=== PATIENT | female | born 1955 | race Two or more races ===

== ENCOUNTER → 2017-01-17 | Outpatient (CLI) | payer OTHER ==
--- NOTE | 2017-01-17 19:29 | RADRPT ---
PROCEDURE: XR KNEES. CLINICAL INDICATION: Knee pain TECHNIQUE: AP, lateral, and sunrise views of both knees were obtained, weightbearing. The images r eviewed on a PACS workstation. COMPARISON: None. FINDINGS: There is bilateral, symmetric, severe, tricompartmental osteoarthritis with joint space narrowing, a rticular sclerosis, and osteophyte formation. There is bone on bone contact in the left lateral comp artment. There is a mild, bilateral, lateral subluxation of both patellas. Small bilateral knee effusions are also noted. No acute fracture, dislocation or osseous lesion. IMPRESSION: Bilateral, symmetric, tricompartmental osteoarthrosis with small bilateral pleural effusions, and mi ld bilateral lateral subluxation of both patellas. Bone on bone contact in the left lateral compartm ent. RPTAT: EE .Aria Haas MD, Date Time Electronically viewed and signed by .Aria Haas MD, on 01/17/2017 14:28 .F/
--- NOTE | 2017-01-18 05:51 | HKNOTE ---
DATE OF SERVICE: 01/17/2017 CHIEF COMPLAINT: Bilateral knee pain. HISTORY OF PRESENT ILLNESS: This is a 61-year-old female who is complaining of severe left knee pain. She had a previous injury to her right knee in 1995 after a fall. She is using a cane for ambulation. She has had previous treatment including physical therapy, injections, and pain medications. She takes ibuprofen and tramadol without any pain relief. She is complaining of severe 10/10 pain in the left knee. The pain is on the outside of the knee. It interferes with her activities of daily living. She has difficulty ambulating. She has difficulty navigating stairs. The pain is constant. There are no alleviating factors. It is aggravated by standing and walking. She denies any locking or catching. She has no other complaints. PAST MEDICAL HISTORY: Hypothyroidism. MEDICATIONS: Please see chart. PAST SURGICAL HISTORY: She denies any previous surgeries. SOCIAL HISTORY: Denies tobacco, alcohol, or drug use. FAMILY HISTORY: Noncontributory. ALLERGIES: NO KNOWN DRUG ALLERGIES. REVIEW OF SYSTEMS: Negative, except per HPI. General: No acute distress. Alert and oriented x3. Gait: Antalgic gait. Left hip is 0-90 degrees flexion, 50 degrees external rotation, and 20 degrees internal rotation. Negative Stinchfield test. Negative Mehnaz's test. Negative straight leg raise. Left knee exam: Valgus alignment. Tender over the lateral joint line. Nontender over the medial joint line. Passively correctable to neutral alignment, 10-100 degrees range of motion. Stable to varus, valgus stress. Negative anterior drawer. Negative posterior drawer. IMAGING: Left knee: There is end-stage osteoarthritis of the left knee with lateral compartment kgqb-sl-[id number] arthritic changes. X-rays right knee: There is joint space narrowing of the lateral compartment with marginal osteophytes and subchondral sclerosis. IMPRESSION: This is a 61-year-old female with bilateral knee primary osteoarthritis. PLAN: The patient has failed nonoperative management. We will request authorization for left total knee arthroplasty. She will return in 6 weeks for re-evaluation. Dictated By: Shauna Dangelo MD /genoveva/lorena /Document#: [id number]
== END | disposition home or self-care (01) ==
LOC: HKI 13:58
PROVIDERS: ATTEND Orthopaedic Surgery Adult Reconstructive Orthopaedic Surgery
DX: M25.561 Pain in right knee (principal); M25.562 Pain in left knee; M17.0 Bilateral primary osteoarthritis of knee
CPT/HCPCS: G0463

== ENCOUNTER → 2017-03-07 | Outpatient (CLI) | payer OTHER ==
[~2017-03-07] MED LIST: CALC1TAB79 PO; ERGO500037 PO; GABA300C16 PO; METF500T4 PO; PROP10TA6 PO
--- NOTE | 2017-03-08 04:07 | HKNOTE ---
DATE OF SERVICE: 03/07/2017 CHIEF COMPLAINT: Left knee pain. HISTORY OF PRESENT ILLNESS: This is a 62-year-old female with left knee osteoarthritis who is here for her preoperative evaluation. She is scheduled for a left total knee arthroplasty on 03/13/2017. She is complaining of pain with difficulty performing her activities of daily living. She uses a cane for ambulation. She has no other complaints. GAIT: Antalgic gait reciprocal gait pattern. LEFT KNEE EXAMINATION: Neutral alignment. Tender over the medial and lateral joint lines, 0 to 120 degrees range of motion. Stable to varus valgus stress, negative Osmani, negative anterior drawer , negative posterior drawer, negative Anabell's. Motor strength 5/5 hamstrings, tibialis anterior, gastroc soleus. IMAGING: X-rays, left knee: 3-view of the left knee demonstrates degenerative changes with joint s pace narrowing and yizu-[id number] arthritic changes of the lateral compartment with subchondral sclero sis. There is also subchondral sclerosis of the medial compartment with the preserved joint space. There are degenerative changes of the patellofemoral joint. IMPRESSION: A 62-year-old female with left valgus knee osteoarthritis. PLAN: The patient is scheduled for a left total knee arthroplasty on 03/13/2017. I discussed the r isks and benefits associated with surgery, which include but are not limited to infection, deep veno us thrombosis, pulmonary embolism, damage to neurovascular structures including nerves, arteries and veins requiring repair or impairing function, heart attack, stroke, need for blood transfusion, fra ctures, leg length discrepancy, loosening of prosthesis, wear of prosthesis, need for revision surge ry, risks associated with anesthesia and even . Patient understood all the risks and informed consent was signed. All her questions were answered. She is scheduled for a left total knee arthro plasty on 03/13/2017 at [facility]. Dictated By: LIBAN TALAMANTES/LIANG Conf#: [id number] DID#: [id number]
--- NOTE | 2017-03-08 04:07 | HKNOTE ---
DATE OF SERVICE: 03/07/2017 CHIEF COMPLAINT: Left knee pain. HISTORY OF PRESENT ILLNESS: This is a 62-year-old female with left knee osteoarthritis who is here for her preoperative evaluation. She is scheduled for a left total knee arthroplasty on 03/13/2017. She is complaining of pain with difficulty performing her activities of daily living. She uses a cane for ambulation. She has no other complaints. GAIT: Antalgic gait reciprocal gait pattern. LEFT KNEE EXAMINATION: Neutral alignment. Tender over the medial and lateral joint lines, 0 to 120 degrees range of motion. Stable to varus valgus stress, negative Osmani, negative anterior drawer , negative posterior drawer, negative Anabell's. Motor strength 5/5 hamstrings, tibialis anterior, gastroc soleus. IMAGING: X-rays, left knee: 3-view of the left knee demonstrates degenerative changes with joint s pace narrowing and mroz-qj-dqhu arthritic changes of the lateral compartment with subchondral sclero sis. There is also subchondral sclerosis of the medial compartment with the preserved joint space. There are degenerative changes of the patellofemoral joint. IMPRESSION: A 62-year-old female with left valgus knee osteoarthritis. PLAN: The patient is scheduled for a left total knee arthroplasty on 03/13/2017. I discussed the r isks and benefits associated with surgery, which include but are not limited to infection, deep veno us thrombosis, pulmonary embolism, damage to neurovascular structures including nerves, arteries and veins requiring repair or impairing function, heart attack, stroke, need for blood transfusion, fra ctures, leg length discrepancy, loosening of prosthesis, wear of prosthesis, need for revision surge ry, risks associated with anesthesia and even . Patient understood all the risks and informed consent was signed. All her questions were answered. She is scheduled for a left total knee arthro plasty on 03/13/2017 at [facility]. Dictated By: LIBAN TALAMANTES/LIANG Conf#: [id number] DID#: [id number]
== END | disposition home or self-care (01) ==
LOC: HKI 14:29
PROVIDERS: ATTEND Orthopaedic Surgery Adult Reconstructive Orthopaedic Surgery
DX: Z01.818 Encounter for other preprocedural examination (principal); M17.12 Unilateral primary osteoarthritis, left knee; M21.062 Valgus deformity, not elsewhere classified, left knee
CPT/HCPCS: G0463

== ENCOUNTER 2017-03-13 07:30 | Inpatient (IN) | payer OTHER ==
[2017-03-12 12:24] VITALS: BMI 42.5
[~2017-03-13] VITALS: Ht 170.2 cm; Wt 124.3 kg
[2017-03-13] VITALS (21 sets, daily range): BP systolic 97–123; BP diastolic 49–73; PULSE 62–84; RESP 12–29; Ht 170.2 cm; Wt 124.3 kg
[~2017-03-13 07:30] MED LIST changes: +ATROPINE 1 MG/10 ML SYRINGE IV PRN; -CALC1TAB79 PO; +DIPHENHYDRAMINE 50 MG INJ IV PRN; +EPHEDrine SULFATE 50 MG/5 ML SYG IV PRN; +EPHEDrine SULFATE 50 MG/5 ML SYG ONE; -ERGO500037 PO; +FENTAnyl 50 MCG/ML VIAL IV PRN; -GABA300C16 PO; +HYDROmorphONE (0.2 MG/ML) 10ML SYG IV PRN; +LABETALOL HCL 20MG INJ IV PRN; +MEPERIDINE 25 MG INJ IV PRN; -METF500T4 PO; +MIDAZOLAM 1 MG/ML 2 ML INJ IV PRN; +ONDANSETRON 4 MG INJ IV PRN; +OXYCODONE/ACETAMINOPHEN (5/325) TAB PO PRN; -PROP10TA6 PO; +ROPIVACAINE 0.2% 60 ML, morphine SULFATE (PF) 4 MG, CLONIDINE 100 MCG, KETOROLAC 30 MG,... INJ SCH; +SUCCINYLCHOLINE CHLORIDE 100 MG/5 ML SYG IV ONE; +hydrALAzine 20 MG INJ IV PRN; +morphine (1 MG/ML) 10ML SYRINGE IV PRN
--- NOTE | 2017-03-13 08:11 | HPN ---
Date/Time of Note Date/Time of Note DATE: 03/13/17 TIME: 08:10 Interval H&P Admission Note Pt. seen H&P reviewed: No system changes IRINA GBIBS PA-C Mar 13, 2017 08:10
[2017-03-13] MEDS ORDERED: ERGO500037 PO (08:51)
[2017-03-13] MEDS ORDERED: CALC1TAB79 PO (08:52)
[2017-03-13] MEDS ORDERED: PROP10TA6 PO (08:52)
[2017-03-13] MEDS ORDERED: GABA300C16 PO (08:53)
[2017-03-13] MEDS ORDERED: METF500T4 PO (08:53)
[2017-03-13] MEDS ORDERED: oxyCODONE (CR) 10 MG TAB [oxyCONTIN] PO ONE (09:43)
[2017-03-13] MEDS ORDERED: ACETAMINOPHEN 1000MG/100ML IV 100 ML IVPB ONE (09:43)
[2017-03-13] MEDS ORDERED: LANSOPRAZOLE 30 MG CAP PO ONE (09:44)
[2017-03-13] MEDS ORDERED: ONDANSETRON 4 MG INJ IV ONE (09:44)
[2017-03-13] MEDS ORDERED: CELECOXIB 200 MG CAP PO ONE (09:44)
[2017-03-13] MEDS ORDERED: DEXAMETHASONE 4 MG/ML 1 ML INJ IV ONE (09:45)
[2017-03-13] MEDS ORDERED: TRANEXAMIC ACID 2,000 MG in SOD CHLORIDE 0.9% 100 ML IVPB SCH (10:00)
[2017-03-13] MEDS ORDERED: CEFAZOLIN 2 GM/50 ML (PMX) 50 ML IVPB SCH (10:00)
[2017-03-13] MEDS ORDERED: TRANEXAMIC ACID 1,000 MG in SOD CHLORIDE 0.9% 100 ML IV ONE ×4 (10:30)
[2017-03-13] MEDS ORDERED: VANCOMYCIN 1 GM in NS 250 ML IVPB SCH (10:30)
[2017-03-13] MEDS ORDERED: MIDAZOLAM 1 MG/ML 2 ML INJ ONE (12:20)
[2017-03-13] MEDS ORDERED: ONDANSETRON 4 MG INJ ONE (12:20)
[2017-03-13] MEDS ORDERED: GLYCOPYRROLATE 0.4 MG INJ ONE (12:20)
[2017-03-13] MEDS ORDERED: PROPOFOL 20 ML ONE (12:20)
[2017-03-13] MEDS ORDERED: DEXAMETHASONE 4 MG/ML 1 ML INJ ONE (12:20)
[2017-03-13] MEDS ORDERED: FENTAnyl 50 MCG/ML VIAL ONE (12:20)
[2017-03-13] MEDS ORDERED: ROCURONIUM 50 MG INJ ONE (12:20)
[2017-03-13] MEDS ORDERED: NEOSTIGMINE 3 MG/3 ML SYRINGE ONE (12:20)
[2017-03-13] MEDS ORDERED: LIDOCAINE 2% (SDV) 5 ML INJ ONE (12:20)
[2017-03-13] MEDS ORDERED: ROPIVACAINE 0.5 % 30 ML VIAL ONE (12:21)
[2017-03-13] MEDS ORDERED: POLYMYXIN/BACITRACIN 1L IRRIG ONE (12:34)
[2017-03-13] MEDS ORDERED: OCULAR LUBRICANT 3.5 GM OPH OINT ONE (12:52)
[2017-03-13] MEDS ORDERED: TRANEXAMIC ACID 1,000 MG in SOD CHLORIDE 0.9% 100 ML IV SCH (13:00)
--- NOTE | 2017-03-13 15:02 | SIPON ---
Date/Time of Note Date/Time of Note DATE: 03/13/17 TIME: 15:00 Operative Report Preoperative Diagnosis Left knee osteoarthritis Postoperative Diagnosis same Operation/Procedure Performed Left total knee arthroplasty Surgeon MD Kalli housekeeping assistant Craig Vizcarra MD Second assist: IRINA GIBBS PA-C Anesthesia: general Estimated blood loss: 250 - 300 ml's Transfusion Required none Specimen resected bone Grafts/Implants Duffy nephMerchant Exchange fanny II Size 5N femur, Size 3 tibia, 10mm PS poly, 35mm patella , 65s280 mm stem Complications none LIBAN PECK MD Mar 13, 2017 15:02
--- NOTE | 2017-03-13 15:52 | PDOCDIS ---
Discharge Instructions DIAGNOSIS Discharge Diagnosis Status post left total knee arthroplasty CONDITION Patient Condition: Stable HOME CARE INSTRUCTIONS: Diet Instructions: Regular ACTIVITY: Activity Restrictions: Slowly Increase Activity Rest between Activity Avoid heavy lifting No Sexual Activity Do not Drive Do not operate Machinery Do not operate Power Tool Avoid Heavy Housework Keep Limb Elevated (Keep leg in full extension while resting. Do not bend the knee while sleeping. Placed 2-3 pillows under her foot/ankle so that leg remains in full extension.) Weight Bearing (As tolerated with front wheeled walker.) Bathing Restrictions: Shower (Keep surgical area clean and dry until postoperative appointment.) FOLLOW UP/APPOINTMENTS Follow-up Plan Follow-up at postoperative appointment around 10-14 days after surgery that was provided for you at your preoperative visit. IRINA GIBBS PA-C Mar 13, 2017 15:52
[2017-03-13] MEDS ORDERED: ZOLPIDEM 5 MG TAB PO PRN (16:00)
[2017-03-13] MEDS ORDERED: HYDROmorphONE 0.2 MG/ML PCA IV PRN (16:00)
[2017-03-13] MEDS ORDERED: KETOROLAC 15 MG INJ IV PRN (16:00)
[2017-03-13] MEDS ORDERED: DOCUSATE SODIUM 100 MG CAP PO ONE ×2 (16:00→16:31)
[2017-03-13] MEDS ORDERED: COUMADIN NOTE XX SCH (16:00)
[2017-03-13] MEDS ORDERED: BISACODYL 10 MG SUPP PR PRN (16:00)
[2017-03-13] MEDS ORDERED: NALOXONE (0.4 MG/ML) INJ IV PRN (16:00)
[2017-03-13] MEDS ORDERED: NA PHOSPHATE/BIPHOS 133 ML ENEMA PR PRN (16:00)
[2017-03-13] MEDS ORDERED: MEPERIDINE 10 MG/ML 30 ML PCA IV PRN (16:00)
[2017-03-13] MEDS ORDERED: BETHANECHOL 25 MG TAB PO PRN (16:00)
[2017-03-13] MEDS ORDERED: MAGNESIUM HYDROXIDE 30ML CUP PO PRN (16:00)
[2017-03-13] MEDS ORDERED: ASPIRIN (EC) 325 MG TAB PO ONE ×2 (16:00→16:31)
[2017-03-13] MEDS ORDERED: SENNA/DOCUSATE NA (8.6MG/50MG) TAB PO PRN (16:00)
[2017-03-13] MEDS: ACETAMINOPHEN 1000MG/100ML IV 100 ML IVPB SCH ×2 (16:39→23:56)
[2017-03-13] MEDS: ONDANSETRON 4 MG INJ IV SCH ×2 (16:40→21:58)
--- NOTE | 2017-03-13 16:54 | RADRPT ---
PROCEDURE: XR Left Knee. CLINICAL INDICATION: Left knee pain. Postop. TECHNIQUE: Two views. Frontal and lateral. COMPARISON: 01/17/2017. FINDINGS: There is no fracture or dislocation. There is gas in the soft tissues related to the recent surgery. There is a total left knee arthroplasty which appears satisfactory. There is no lytic or blastic lesion. IMPRESSION: 1. Satisfactory postoperative appearance of the left knee. RPTAT: QQ .Ricki Mccarty MD, MD Date Time Electronically viewed and signed by .Ricki Mccarty MD, MD on 03/13/2017 16:54 .R/
[2017-03-13] MEDS: VANCOMYCIN 1 GM (PMX) 250 ML IVPB SCH (18:34)
[2017-03-13] MEDS: DEXTROSE 5%-LR 1,000 ML IV SCH (18:39)
[2017-03-13] MEDS: oxyCODONE 5 MG TAB PO PRN (19:47)
[2017-03-13] MEDS: GABAPENTIN 100 MG CAP PO SCH (21:57)
[2017-03-14 00:05] VITALS: BP 125/59; PULSE 80; RESP 18
[2017-03-14 02:28] VITALS: BP 119/63; RESP 19
[2017-03-14] MEDS: oxyCODONE 5 MG TAB PO PRN ×3 (02:31→16:05)
[2017-03-14 04:00] VITALS: BP 122/63; PULSE 78; RESP 17
[2017-03-14] MEDS: ONDANSETRON 4 MG INJ IV SCH ×2 (04:00→10:25)
[2017-03-14] MEDS: DEXTROSE 5%-LR 1,000 ML IV SCH ×2 (04:09→16:44)
[2017-03-14 05:10] LABS: BASOPHILS % 0.1 % (0.0-2.0); HEMATOCRIT 33.1 % (37.0-47.0); HEMOGLOBIN 10.7 g/dl (12.0-16.0); LYMPHOCYTES # 0.9 10^3/ul (0.8-2.9); LYMPHOCYTES % 7.1 % (15.0-51.0); MEAN CORPUSCULAR HGB CONC 32.3 g/dl (32.0-37.0); MEAN CORPUSCULAR VOLUME 92.7 fl (82.0-101.0); MEAN PLATELET VOLUME 9.8 fl (7.4-10.4); MONOCYTE # 0.9 10^3/ul (0.3-0.9); MONOCYTES % 7.2 % (0.0-11.0); NEUTROPHIL # 10.7 10^3/ul (1.6-7.5); NEUTROPHILS % 85.2 % (39.0-77.0); PLATELET COUNT 235 10^3/UL (140-415); RED BLOOD COUNT 3.57 10^6/ul (4.20-5.40); RED CELL DISTRIBUTION WIDTH 12.9 % (11.5-14.5); WHITE BLOOD COUNT 12.6 10^3/ul (4.8-10.8)
[2017-03-14] MEDS: DEXAMETHASONE 4 MG/ML 1 ML INJ IV SCH (06:32)
[2017-03-14] MEDS: VANCOMYCIN 1 GM (PMX) 250 ML IVPB SCH (06:32)
--- NOTE | 2017-03-14 06:55 | OPR ---
DATE OF OPERATION: 03/13/2017 PREOPERATIVE DIAGNOSIS: Left knee osteoarthritis. POSTOPERATIVE DIAGNOSIS: Left knee osteoarthritis. PROCEDURES PERFORMED: 1. Left total knee arthroplasty, CPT code 62763. 2. Computer assisted surgical navigational procedure for total knee, CPT code 07892. SURGEON: Liban Dangelo M.D. HOUSEHOLD APPLIANCES SALESPERSON: SUSAN Martinez. ANESTHESIOLOGIST: Dr. Cassidy. ANESTHESIA: General. ESTIMATED BLOOD LOSS: 300 mL. COMPLICATIONS: None. SPECIMENS: Resected bone. TOURNIQUET TIME: 90 minutes at 250 mmHg. DISPOSITION: To PACU in stable condition. IMPLANT USED: A [employer]uffy [employer]hew Iqra size 3 tibial baseplate, Legion size 5 narrow femoral comp onent, 35 mm patellar component, 10 mm high flexion posterior stabilized polyethylene 10 x 100 mm lo ng stem. INDICATION FOR PROCEDURE: This is a 62-year-old female with endstage osteoarthritis of the left kne e, who failed nonoperative management. Risks, benefits, alternatives of surgical intervention were discussed with the patient and informed consent was obtained. The risks of surgery include but are not limited to infection, deep venous thrombosis, pulmonary emb olism, damage to neurovascular structures requiring repair, wound healing problems, loosening of pro sthesis, wear of prosthesis, need for revision surgery, need for blood transfusion, heart attack, st roke, risks associated with anesthesia and even . DESCRIPTION OF PROCEDURE: The patient was met in the preoperative suite and the correct operative s ite was confirmed and marked. She was then brought into operating room. After induction of general anesthesia, she was placed in the supine position on the operating table. A tourniquet was applied to the left upper thigh and her left lower extremity was prepped and draped in the usual sterile fa shion. Before starting, a timeout was taken to identify the correct operative site and confirm the preoperative antibiotics consisting of 2 grams of IV Ancef, along with 1 gram of tranexamic acid wer e administered. At this point, the left leg was then elevated and exsanguinated and tourniquet was then insufflated for the above noted time. A midline incision was made and a median parapatellar arthrotomy was then performed. The lateral patellar retinacular ligaments were released and the patella was retracted laterally. A sleeve of tissue was released from the proximal medial tibia. The cruciate ligaments along with menisci were then excised as well as the suprapatellar fat pad. At this point, the drill was used to place our intramedullary distal femoral cutting block and 9.5 mm was resected from the distal femur. The femur was then subsequently sized 5. A size five 4-in-1 cutting block was pinned , and the anterior posterior condylar cuts followed by the anterior, posterior chamfer cuts were the n completed. At this point, the tibia was then subluxed anteriorly using the navigational OrthAlign. The slope w as set at 3 degrees with 0 degrees of varus and valgus. Then, 8 mm was resected off the medial tibi al plateau and 2 mm off the lateral tibial plateau. The gap cashier checker was used and noted that the kne e was tighter on the medial side. Pie crusting technique release of the posterior capsule was perfo rmed. Equal flexion and extension gaps were obtained. At this point, the patella was sized to 24 m m and 10 mm was resected. The patella was sized to a 35 mm. The 3 holes were then drilled for the patellar button. The femoral component was then placed and the intercondylar box cut was then compl eted. The trial 5 narrow femur along with a 3 tibia were pinned and a 10 mm posterior stabilized po lyethylene was used. The knee was noted to have full extension with greater than 120 degrees of fle xion and stable to varus valgus stress with excellent patellar tracking. The trial components were removed. Bony surfaces were pulse lavaged and dried. The reamer was used for the stem. The approp riate size components were cemented with the removal of excess cement. The knee was held in full ex tension until the cement had cured. The tourniquet was deflated. The tranexamic acid and antibioti cs were redosed. Once the cement had cured, the trial polyethylene was removed and the appropriate size 10 mm high flexion posterior stabilized polyethylene was inserted. Hemostasis was obtained. T he arthrotomy was closed using a #1 Vicryl in interrupted mpzdjb-uk-tlblz fashion followed by closur e of subcutaneous tissue with 0 Vicryl and the skin with 3-0 Monocryl in subcuticular fashion with S dario-Strips. Sterile dressing was applied followed by a cold pack and Javier wrap. The patient was aw akened and taken to postoperative care unit in stable condition. POSTOPERATIVE CARE: She will be weightbearing as tolerated. She will work with physical therapy. She will receive two additional doses of IV Ancef. She will have SCDs along with aspirin 325 mg p.o . b.i.d. for 6 weeks. Upon discharge, she will follow up in my office at [facility] within 2 weeks postoperatively. Dictated By: LIBAN TALAMANTES/LIANG Conf#: [id number] DID#: [id number]
[2017-03-14 07:55] VITALS: BP 117/52; RESP 19
[2017-03-14] MEDS: ACETAMINOPHEN 1000MG/100ML IV 100 ML IVPB SCH ×2 (08:44→16:36)
--- NOTE | 2017-03-14 08:47 | PN ---
Date/Time of Note Date/Time of Note DATE: 03/14/17 TIME: 08:46 Assessment/Plan VTE Prophylaxis VTE Prophylaxis Intervention: ambulation, SCD's, other (Aspirin 325 mg) Lines/Catheters IV Catheter Type (from Nrsg): Peripheral IV Maldonado in Place (from Nrsg): Yes Assessment/Plan Assessment/Plan -Pain Meds as needed -Dressing is clean and intact. -OOB with PT -ASA/SCDs for DVT Prophylaxis -Continue monitoring with Internal Medicine -Patient Stable Subjective 24 Hr Interval Summary 62-year-old female postop day 1 status post left total knee arthroplasty. Having pain complaints today. Stiffness with range of motion. Has yet to initiate physical therapy. Plan is to initiate physical therapy today 2. Denies any acute overnight events. Denies any calf pain, chest pain or tightness. Pain Control: mild Exam/Review of Systems Vital Signs Vitals Vital Signs Date Time Temp Pulse Resp B/P Pulse Ox O2 Delivery O2 Flow Rate FiO2 03/14/17 07:55 98.2 79 19 117/52 98 03/14/17 04:00 Nasal Cannula 2.0 Intake and Output 03/13/17 03/13/17 03/14/17 14:59 22:59 06:59 Intake Total 110 ml 510 ml 1740 ml Output Total 100 ml 500 ml 2000 ml Balance 10 ml 10 ml -260 ml Exam Free Text/Dictation -No complications with dressing intact. -5/5 Tibialis Anterior, EHL Gastrocnemius/Soleus and Peroneals -Normal Sensation -Palpable DP/PT, Capillary Refill <2 secs -No Distal Edema -Negative Ottoniel Sign/No calf pain -Toes Freely Movable Results Result Diagram: 03/14/17 0448 IRINA GIBBS PA-C Mar 14, 2017 08:47
[2017-03-14] MEDS: ASPIRIN (EC) 325 MG TAB PO SCH ×2 (08:50→21:01)
[2017-03-14] MEDS: DOCUSATE SODIUM 100 MG CAP PO SCH ×2 (08:50→21:02)
[2017-03-14] MEDS: CELECOXIB 200 MG CAP PO SCH ×2 (08:51→21:00)
[2017-03-14] MEDS: GABAPENTIN 100 MG CAP PO SCH ×2 (08:51→21:01)
[2017-03-14] MEDS: FERROUS FUMARATE (SR) TAB PO SCH ×2 (08:51→21:02)
[2017-03-14] MEDS ORDERED: INFLUENZA VIRUS VACCINE 0.5 ML SYG IM* ONE (16:00)
[2017-03-14 16:12] VITALS: BP 103/56; PULSE 75; RESP 20
[2017-03-14] MEDS ORDERED: GLUCOSE GEL 15 GRAM TUBE PO PRN ×2 (19:30)
[2017-03-14] MEDS ORDERED: GLUCOSE GEL 15 GRAM TUBE BUCCAL PRN (19:30)
[2017-03-14] MEDS ORDERED: GLUCAGON 1 MG INJ IM PRN (19:30)
[2017-03-14] MEDS ORDERED: DEXTROSE 50% 50 ML SYRINGE IV PRN ×2 (19:30)
[2017-03-14 20:00] VITALS: BP 109/51; RESP 19
[2017-03-14] MEDS: GABAPENTIN 300 MG CAP PO SCH (21:00)
[2017-03-14] MEDS ORDERED: metFORMIN (XR) 500 MG TAB PO SCH (21:00)
[2017-03-14] MEDS: PROPRANOLOL 10 MG TAB PO SCH (21:01)
[2017-03-14] MEDS: DIPHENHYDRAMINE 50 MG INJ IM PRN (21:03)
[2017-03-15 02:03] VITALS: BP 107/53; RESP 19
[2017-03-15] MEDS: oxyCODONE 5 MG TAB PO PRN ×3 (04:03→15:56)
[2017-03-15 05:11] LABS: BASOPHILS % 0.4 % (0.0-2.0); EOSINOPHILS # 0.2 10^3/ul (0.0-0.5); EOSINOPHILS % 1.9 % (0.0-7.0); HEMATOCRIT 32.2 % (37.0-47.0); LYMPHOCYTES # 1.9 10^3/ul (0.8-2.9); LYMPHOCYTES % 23.6 % (15.0-51.0); MEAN CORPUSCULAR HEMOGLOBIN 29.6 pg (29.0-33.0); MEAN CORPUSCULAR HGB CONC 31.1 g/dl (32.0-37.0); MEAN CORPUSCULAR VOLUME 95.3 fl (82.0-101.0); MEAN PLATELET VOLUME 9.7 fl (7.4-10.4); MONOCYTE # 0.9 10^3/ul (0.3-0.9); MONOCYTES % 11.7 % (0.0-11.0); NEUTROPHIL # 4.9 10^3/ul (1.6-7.5); PLATELET COUNT 206 10^3/UL (140-415); RED BLOOD COUNT 3.38 10^6/ul (4.20-5.40); RED CELL DISTRIBUTION WIDTH 13.6 % (11.5-14.5); WHITE BLOOD COUNT 7.8 10^3/ul (4.8-10.8)
[2017-03-15] MEDS: DEXTROSE 5%-LR 1,000 ML IV SCH (05:14)
[2017-03-15] MEDS: DEXAMETHASONE 4 MG/ML 1 ML INJ IV SCH (05:19)
[2017-03-15] MEDS: ACETAMINOPHEN 1000MG/100ML IV 100 ML IVPB SCH ×2 (05:19)
[2017-03-15] MEDS ORDERED: PANTOPRAZOLE (EC) 40 MG TAB PO SCH (06:00)
[2017-03-15] MEDS: DIPHENHYDRAMINE 50 MG INJ IM PRN (06:49)
[2017-03-15 07:20] VITALS: BP 94/45; RESP 19
[2017-03-15] MEDS: GABAPENTIN 300 MG CAP PO SCH (08:15)
[2017-03-15] MEDS: FERROUS FUMARATE (SR) TAB PO SCH (08:16)
[2017-03-15] MEDS: PROPRANOLOL 10 MG TAB PO SCH (08:16)
[2017-03-15] MEDS: CELECOXIB 200 MG CAP PO SCH (08:16)
[2017-03-15] MEDS: DOCUSATE SODIUM 100 MG CAP PO SCH (08:16)
[2017-03-15] MEDS: ASPIRIN (EC) 325 MG TAB PO SCH (08:16)
[2017-03-15] MEDS ORDERED: CALCIUM/VITAMIN D (500/200) TAB PO SCH (09:00)
[2017-03-15] MEDS ORDERED: ERGOCALCIFEROL 50,000 UNIT CAP PO SCH (09:00)
--- NOTE | 2017-03-15 09:08 | PN ---
Date/Time of Note Date/Time of Note DATE: 03/15/17 TIME: 09:07 Assessment/Plan VTE Prophylaxis VTE Prophylaxis Intervention: ambulation, SCD's, other (Aspirin 325 mg) Lines/Catheters IV Catheter Type (from Nrsg): Saline Lock Maldonado in Place (from Nrsg): No Assessment/Plan Assessment/Plan -Pain Meds as needed -ASA for DVT Prophylaxis x 6 weeks outpatient discussed. -Continue monitoring as outpatient on discharge -Follow-up at scheduled postop outpatient appointment or sooner if there is any issue. -Patient Stable -Discharge to Home with home health Subjective 24 Hr Interval Summary 62-year-old female postop day 2 status post left total knee arthroplasty. Patient is doing well. Patient has been up and walking with physical therapy up to 300 feet. No acute overnight events. Resting comfortably in bed right now. Pillows under the foot and ankle with leg in full extension. Constitutional: no complaints Pain Control: well controlled Exam/Review of Systems Vital Signs Vitals Vital Signs Date Time Temp Pulse Resp B/P Pulse Ox O2 Delivery O2 Flow Rate FiO2 03/15/17 07:20 98.0 77 19 94/45 98 03/14/17 16:12 Room Air 03/14/17 04:00 2.0 Intake and Output 03/14/17 03/14/17 03/15/17 15:00 23:00 07:00 Intake Total 100 ml 720 ml 1180 ml Output Total 2000 ml 1200 ml Balance 100 ml -1280 ml -20 ml Exam Free Text/Dictation -No complications with dressing intact. -5/5 Tibialis Anterior, EHL Gastrocnemius/Soleus and Peroneals -Normal Sensation -Palpable DP/PT, Capillary Refill <2 secs -No Distal Edema -Negative Ottoniel Sign/No calf pain -Toes Freely Movable Results Result Diagram: 03/15/17 0447 IRINA GIBBS PA-C Mar 15, 2017 09:08
--- NOTE | 2017-03-16 07:40 | DS ---
Date/Time of Note Date/Time of Note DATE: 03/16/17 TIME: 07:37 Discharge Summary Admission/Discharge Info Admit Date/Time Mar 13, 2017 at 08:00 Discharge Date/Time Mar 15, 2017 at 16:25 Discharge Diagnosis Status post left total knee arthroplasty Patient Condition: Good Hospital Course On the day of admission, the patient underwent left total knee arthroplasty Intraoperative complications: None Postoperative complications: None The patient was given prophylactic antibiotics and anticoagulants. On the day of surgery and first postoperative day patient was started on gait training and was taught usual restrictions following knee replacement On postoperative day 1 dressing was clean dry and intact. No complications were observed. On the day of discharge, the wound was clean and healing well; there was no sign of infection. Wound care instructions were discussed with the patient. Discharge Temperature: 98 Discharge White Blood Cell Count: 7.8 Discharge Hemoglobin: 10 The patient was discharged home with home health. Arrangements were made for visiting nurses and home health/physical therapy. The patient will be seen in office at scheduled postoperative evaluation date given on their preoperative exam. Should patient complain of any problems prior to scheduled postoperative evaluation date, they may call into outpatient clinic to determine if they need to be scheduled at sooner appointment to be seen immediately if needed. Discharge medications: As per medication reconciliation form Diet: Same as preadmission diet. This is Denzel Junior PA-C dictating discharge summary for Dr. Jairo Crowe. Home Meds Reported Medications Gabapentin* (Gabapentin*) 300 Mg Capsule, 300 MG PO BID, #60 CAP 03/13/17 Metformin Hcl* (Metformin Hcl*) 500 Mg Tablet, 500 MG PO WITH DINNER, #30 TAB 03/13/17 Propranolol Hcl* (Propranolol Hcl*) 10 Mg Tablet, 10 MG PO BID, TAB 03/13/17 Calcium Carbonate/Vitamin D3 (Oysco 500+D Tablet) 1 Each Tablet, 1 EACH PO DAILY , TAB 03/13/17 Ergocalciferol (Vitamin D2) (VITAMIN D2) 50,000 Unit Capsule, 81931 UNIT PO EVERY SATURDAY, CAP 03/13/17 Follow-up Plan Follow-up at postoperative appointment around 10-14 days after surgery that was provided for you at your preoperative visit. Primary Care Provider MD BERNIE Lennon KERBY PA-C Mar 16, 2017 07:39
== END 2017-03-15 16:25 | disposition home health service (06) | DRG 470 ==
LOC: REC 08:00 → MS1 17:45
PROVIDERS: ADMIT Orthopaedic Surgery Adult Reconstructive Orthopaedic Surgery; ATTEND Orthopaedic Surgery Adult Reconstructive Orthopaedic Surgery
PROC: 0SRD0J9 Replacement of Left Knee Joint with Synthetic Substitute, Cemented, Open Approach (ICD-10-PCS; principal; 2017-03-13 11:00)
DX: M17.12 Unilateral primary osteoarthritis, left knee (principal)
CPT/HCPCS: 73560; 82962; 85025; 86850; 86900; 86901; 86920; 87086; 88304; 88311; 90686; 97110; 97116; 97162; 97167; 97530; J0131; J1100; J1200; J1885; J2250; J2405; J2710; J2795; J3010; J3370; J7121

== ENCOUNTER → 2017-03-26 | Outpatient (CLI) | payer OTHER ==
[~2017-03-26] MED LIST changes: -ATROPINE 1 MG/10 ML SYRINGE IV PRN; +CALC1TAB79 PO; -DIPHENHYDRAMINE 50 MG INJ IV PRN; -EPHEDrine SULFATE 50 MG/5 ML SYG IV PRN; -EPHEDrine SULFATE 50 MG/5 ML SYG ONE; +ERGO500037 PO; -FENTAnyl 50 MCG/ML VIAL IV PRN; +GABA300C16 PO; -HYDROmorphONE (0.2 MG/ML) 10ML SYG IV PRN; -LABETALOL HCL 20MG INJ IV PRN; -MEPERIDINE 25 MG INJ IV PRN; +METF500T4 PO; -MIDAZOLAM 1 MG/ML 2 ML INJ IV PRN; -ONDANSETRON 4 MG INJ IV PRN; -OXYCODONE/ACETAMINOPHEN (5/325) TAB PO PRN; +PROP10TA6 PO; -ROPIVACAINE 0.2% 60 ML, morphine SULFATE (PF) 4 MG, CLONIDINE 100 MCG, KETOROLAC 30 MG,... INJ SCH; -SUCCINYLCHOLINE CHLORIDE 100 MG/5 ML SYG IV ONE; -hydrALAzine 20 MG INJ IV PRN; -morphine (1 MG/ML) 10ML SYRINGE IV PRN
--- NOTE | 2017-03-26 16:00 | HKNOTE ---
DATE OF SERVICE: 03/26/2017 CHIEF COMPLAINT: Followup. HISTORY OF PRESENT ILLNESS: This is a 62-year-old female who is 2 weeks status post left total knee arthroplasty. She has been doing well. She has been performing physical therapy. She is using a walker for ambulation. She has been taking aspirin twice daily for DVT prophylaxis. She denies any chest pain, shortness of breath or calf pain. Date of surgery is 03/13/2017. PHYSICAL EXAMINATION: Left knee Steri-Strips are intact. Incision is healed. There is no drainage . Calf is soft, nontender with a negative Ottoniel's, 5-83 degrees range of motion stable to varus samuel amor stress. Negative Osmani, negative anterior drawer, negative posterior drawer. IMAGING: X-rays, left knee, 3 views of the left knee demonstrate that the prosthesis is in acceptab le alignment. There are no fractures or dislocations. IMPRESSION: A 62-year-old female status post left total knee arthroplasty. PLAN: She will be weightbearing as tolerated. She will finish her remaining postoperative aspirin. She will work with outpatient physical therapy. She will follow up in 6 weeks. Dictated By: LIBAN TALAMANTES/LIANG Conf#: [id number] DID#: [id number]
--- NOTE | 2017-03-28 09:47 | RADRPT ---
PROCEDURE: Left knee radiographs. CLINICAL INDICATION: Left knee pain. Postop. TECHNIQUE: Three views. Weight bearing. Frontal, lateral, and patellar view. COMPARISON: 03/13/2017. FINDINGS: There is no fracture or dislocation. The soft tissues are normal. There is a total left knee arthroplasty which appears satisfactory. There is no lytic or blastic lesion. IMPRESSION: 1. Satisfactory postoperative appearance of the left knee. RPTAT: QQ .Ricki Mccarty MD, MD Date Time Electronically viewed and signed by .Ricki Mccarty MD, MD on 03/28/2017 09:47 .R/
== END | disposition home or self-care (01) ==
LOC: HKI 14:00
PROVIDERS: ATTEND Orthopaedic Surgery Adult Reconstructive Orthopaedic Surgery
DX: Z09 Encounter for follow-up examination after completed treatment for conditions other than malignant neoplasm (principal); Z96.652 Presence of left artificial knee joint; Z79.82 Long term (current) use of aspirin

== ENCOUNTER → 2017-04-25 | Outpatient (CLI) | payer OTHER ==
--- NOTE | 2017-04-25 15:35 | PN ---
Date/Time of Note Date/Time of Note DATE: 04/25/17 TIME: 15:30 Outpatient Progress Note Chief Complaint 6 week postop status post left total knee arthroplasty. HPI 62-year-old female presents today for follow-up status post left total knee arthroplasty on 03/13/2017. Patient states that she has had significant improvement. She is walking without assistive ambulatory device. She does mention however, at night she has severe pain complaints in which she takes a [place]. She does not take her [place] every day but at times of severe pain only. Denies any falls or acute injury. Denies any calf pain, swelling, chest pain/ tightness or shortness of breath. Review of Systems Const: No Fever, no chills, no Fatigue, normal appetite, no diaphoresis. Resp: No SOB, no wheezing, no chest pain. CV: No chest pain, no palpitaions, no ALVAREZ. Physical Exam Height 5 foot 7 inches, weight 270 pounds General Appearance: well-developed, well-nourished, in no acute distress. Left knee: Well-healed surgical scar to the anterior knee. No tenderness to palpation on examination today. Patient is able to fully extend and flex up to 120. No pain complaints on exam. Walking independently today with no pain on ambulation. Negative Homans sign. Normal sensory examination to light touch. Imaging: X-ray of the light knee performed on 04/25/2017 showing all components appearing well alignedWith possible slight hanging of the medial epicondylar region of prosthesis but well attached, attached and integrated to the bone. No signs of any lucency between metal and bone. Allergies Coded Allergies: Latex, Natural Rubber (Verified Allergy, Unknown, RASH ITCHING, 03/13/17) cefaclor (Verified Allergy, Unknown, 03/13/17) Uncoded Allergies: TAPE (Allergy, Unknown, rash itching, 03/13/17) Assessment/Plan * Continue with physical therapy. Continue with at home therapy as well for improve range of motion and strengthening. Exercises were also discussed today. If patient were to do exercises in the gym, stationary bicycle and elliptical machine recommended. No running or jogging. Aqua therapy also recommended. * Refill of [place] 5/325 mg 1 tab p.o. every 6-8 hours as needed severe pain #50 provided today. Patient made aware that after this prescription she may transition to ibuprofen or Tylenol as needed for pain complaints. * Patient has discontinued aspirin 325 mg for DVT prophylaxis as she is 6 weeks status post knee replacement. * Patient will follow-up in another 6 weeks/3 months status post surgical date for repeat evaluation. Medications Home Meds Reported Medications Gabapentin* (Gabapentin*) 300 Mg Capsule, 300 MG PO BID, #60 CAP 03/13/17 Metformin Hcl* (Metformin Hcl*) 500 Mg Tablet, 500 MG PO WITH DINNER, #30 TAB 03/13/17 Propranolol Hcl* (Propranolol Hcl*) 10 Mg Tablet, 10 MG PO BID, TAB 03/13/17 Calcium Carbonate/Vitamin D3 ([place] 500+D Tablet) 1 Each Tablet, 1 EACH PO DAILY , TAB 03/13/17 Ergocalciferol (Vitamin D2) (VITAMIN D2) 50,000 Unit Capsule, 25087 UNIT PO EVERY SATURDAY, CAP 03/13/17 IRINA GIBBS PA-C Apr 25, 2017 15:35
--- NOTE | 2017-04-25 20:51 | RADRPT ---
PROCEDURE: Left knee radiographs. CLINICAL INDICATION: Left knee pain. Postop. TECHNIQUE: Three views. Weight bearing. Frontal, lateral, and patellar view. COMPARISON: 11/23/2016. FINDINGS: There is no fracture or dislocation. The soft tissues are normal. There is a total left knee arthroplasty which appears satisfactory. There is no lytic or blastic lesion. IMPRESSION: 1. Satisfactory postoperative appearance of the left knee. RPTAT: QQ .Ricki Mccarty MD, MD Date Time Electronically viewed and signed by .Ricki Mccarty MD, MD on 04/25/2017 20:51 .R/
== END | disposition home or self-care (01) ==
LOC: HKI 14:53
PROVIDERS: ATTEND Orthopaedic Surgery Adult Reconstructive Orthopaedic Surgery
DX: Z47.1 Aftercare following joint replacement surgery (principal); Z96.652 Presence of left artificial knee joint
CPT/HCPCS: 73562; Z7500; G0463

== ENCOUNTER → 2017-06-14 | Outpatient (CLI) | END | disposition home or self-care (01) ==

== ENCOUNTER → 2017-09-16 | Outpatient (CLI) | END | disposition home or self-care (01) ==

== ENCOUNTER → 2017-10-18 | Outpatient (CLI) | END | disposition home or self-care (01) ==